=== PATIENT | male | born 1940 | race Caucasian/White ===

== ENCOUNTER 2020-12-04 10:21 | Outpatient (CLI) | payer OTHER | END 2020-12-04 10:24 | disposition home or self-care (01) | LOC: RAD 10:21 | PROVIDERS: ATTEND Physical Medicine & Rehabilitation | DX: M17.12 Unilateral primary osteoarthritis, left knee (principal) ==

== ENCOUNTER 2021-03-16 08:00 | Outpatient (CLI) | payer OTHER | END 2021-03-16 08:30 | disposition home or self-care (01) | LOC: PPH VACUNA 08:00 | DX: Z23 Encounter for immunization (principal) ==

== ENCOUNTER 2024-06-14 09:11 | Inpatient (IN) | payer OTHER ==
[~2024-06-14] VITALS: Ht 167.6 cm; Wt 83.9 kg
[2024-06-14] MEDS ORDERED: LIPITOR20 MG PO (09:43)
[2024-06-14] MEDS ORDERED: TAMS0.4C PO (09:43)
[2024-06-14] MEDS ORDERED: ZESTRIL20 MG (09:44)
[2024-06-14] MEDS ORDERED: CIPROFLOXACIN IN 5 % DEXTROSE 400 MG/200 ML PIGGYBAG IV ONE (10:15)
[2024-06-14] MEDS ORDERED: ONDANSETRON HCL 2 MG/ML VIAL IV ONE (10:15)
[2024-06-14] MEDS ORDERED: 0.9 % SODIUM CHLORIDE 1,000 ML IV ONE (10:15)
[2024-06-14] MEDS ORDERED: FAMOtidine 10 MG/ML (4ML VIAL) IV ONE (10:15)
[2024-06-14] MEDS ORDERED: METRONIDAZOLE/SODIUM CHLORIDE 500 MG/100 ML PIGGYBACK IV ONE (10:15)
[2024-06-14] MEDS ORDERED: KETOROLAC TROMETHAMINE 60 MG VIAL IM ONE (10:15)
[2024-06-14] MEDS ORDERED: METHYLPREDNISOLONE SOD SUCC 40 MG VIAL IV ONE (10:15)
[2024-06-14] MEDS ORDERED: DIPHENHYDRAMINE HCL 50 MG/ML VIAL 1ML IV ONE (10:15)
[2024-06-14] MEDS ORDERED: TAMSULOSIN HCL 0.4 MG CAP PO ONE (11:00)
[2024-06-14 11:10] LABS: HEMATOCRIT 41.4 % (39.0-48.0); HEMOGLOBIN 14.3 g/dL (13-16.00); MEAN CELL VOLUME 93.5 fL (80.0-100.00); MEAN CORPUSCULAR HEMOGLOBIN 32.3 pg (27.00-32.0); MEAN CORPUSCULAR HGB CONC 34.5 g/dl (32.0-36.0); PLATELET COUNT 240 K/uL (150-450); RED BLOOD COUNT 4.44 M/uL (4.00-6.00); RED CELL DISTRIBUTION WIDTH 14.2 % (11.5-14.5)
[2024-06-14 11:47] LABS: INR 0.97; PARTIAL THROMBOPLASTIN TIME 26.4 SECONDS (22.0-34.0); PROTHROMBIN TIME 10.6 SECONDS (9.0-11.5)
[2024-06-14 12:20] LABS: ALBUMIN 3.8 gm/dL (3.4-5.0); BILIRUBIN TOTAL 1.16 mg/dL (0.3-1.2); CALCIUM 9.1 mg/dL (8.5-10.1); CREATININE SERUM 1.8 mg/dL (0.70-1.30); GFR 36.13; POTASSIUM 4.46 mEq/L (3.5-5.1); TOTAL PROTEIN 6.8 gm/dL (6.4-8.2)
[2024-06-14] MEDS ORDERED: ASPIRIN 81 MG TABLET.EC PO ONE (12:45)
[2024-06-14] MEDS ORDERED: MORPHINE SULFATE 4 MG/ML VIAL IV ONE (14:30)
[2024-06-14] MEDS ORDERED: TICAGRELOR 90 MG TABLET PO ONE (16:15)
[2024-06-14] MEDS ORDERED: NITROGLYCERIN 250 ML IV SCH (16:15)
[2024-06-14] MEDS ORDERED: NITROGLYCERIN IN 5 % DEXTROSE 250 ML IV SCH (16:30)
[2024-06-14] MEDS ORDERED: 0.9 % SODIUM CHLORIDE 1,000 ML IV SCH (17:00)
[2024-06-14] MEDS ORDERED: ATORVASTATIN CALCIUM 40 MG TABLET PO SCH (17:03)
[2024-06-14] MEDS ORDERED: PANTOPRAZOLE SODIUM 40 MG/VIAL VIAL IV SCH (17:03)
[2024-06-14] MEDS ORDERED: ONDANSETRON HCL 4 MG in 0.9 % SODIUM CHLORIDE 50 ML IV PRN (17:15)
[2024-06-14] MEDS ORDERED: MORPHINE SULFATE 4 MG/ML CARTRIDGE IV PRN (17:30)
[2024-06-14 18:10] LABS: MAGNESIUM 2.3 mg/dL (1.8-2.4); PHOSPHOROUS 3.1 mg/dL (2.5-4.9)
[2024-06-14 18:46] LABS: CKMB 15.2 NG/ML (0.5-3.6)
[2024-06-14] MEDS ORDERED: CIPROFLOXACIN IN 5 % DEXTROSE 200 ML IV SCH (21:00)
[2024-06-14 22:53] VITALS: BP 106/63; O2SAT 100
[2024-06-14 23:30] VITALS: BP 110/59; O2SAT 100
[2024-06-15] VITALS (11 sets, daily range): BP systolic 95–113; BP diastolic 46–63; O2SAT 98–100
[2024-06-15] MEDS ORDERED: METRONIDAZOLE/SODIUM CHLORIDE 100 ML IV SCH ×2 (01:00→17:00)
[2024-06-15 02:36] LABS: CKMB 8.1 NG/ML (0.5-3.6)
[2024-06-15 07:05] LABS: URINE APPEARANCE Clear; URINE BILIRRUBIN Negative (NEGATIVE); URINE BLOOD Negative; URINE COLOR Yellow; URINE GLUCOSE Negative (NEGATIVE); URINE KETONE Negative (NEGATIVE); URINE LEUKOCYTE Negative; URINE NITRATE Negative; URINE PROTEIN Negative (NEGATIVE); URINE UROBILINOGEN 0.2 E.U./dl
[2024-06-15 07:09] LABS: URINE BACTERIA 8.8 uL (0.0-1933); URINE EPITHELIAL CELLS 1.5 uL (0.0-38.8); URINE WBC 3.5 uL (0.0-23.2)
[2024-06-15 07:30] LABS: URINE CAST 1.22 uL (0.0-1.40); URINE RBC 1.5 uL (0.0-20.8)
[2024-06-15] MEDS ORDERED: LISINOPRIL 20 MG TABLET PO SCH (09:00)
[2024-06-15] MEDS ORDERED: TAMSULOSIN HCL 0.4 MG CAP PO SCH (09:00)
[2024-06-15 09:39] LABS: CKMB 7.1 NG/ML (0.5-3.6)
[2024-06-15 13:38] LABS: HEMATOCRIT 36.2 % (39.0-48.0); HEMOGLOBIN 12.3 g/dL (13-16.00); MEAN CELL VOLUME 94.6 fL (80.0-100.00); MEAN CORPUSCULAR HEMOGLOBIN 32.1 pg (27.00-32.0); MEAN CORPUSCULAR HGB CONC 33.9 g/dl (32.0-36.0); PLATELET COUNT 203 K/uL (150-450); RED BLOOD COUNT 3.83 M/uL (4.00-6.00); RED CELL DISTRIBUTION WIDTH 14.2 % (11.5-14.5)
[2024-06-15 14:50] LABS: CREATININE SERUM 1.89 mg/dL (0.70-1.30); GFR 34.15; POTASSIUM 3.93 mEq/L (3.5-5.1)
[2024-06-15] MEDS ORDERED: CIPROFLOXACIN IN 5 % DEXTROSE 400 MG/200 ML PIGGYBAG IV SCH (21:00)
== END 2024-06-15 16:15 | disposition left against medical advice (07) | DRG 682 ==
LOC: ER 09:13 → ICU-2 21:57
PROVIDERS: General Practice; ADMIT Student in an Organized Health Care Education/Training Program; ATTEND Student in an Organized Health Care Education/Training Program
PROC: BW21ZZZ Computerized Tomography (CT Scan) of Abdomen and Pelvis (ICD-10-PCS; principal; 2024-06-14)
PROC: B020ZZZ Computerized Tomography (CT Scan) of Brain (ICD-10-PCS; 2024-06-14)
PROC: BW2FZZZ Computerized Tomography (CT Scan) of Neck (ICD-10-PCS; 2024-06-14)
PROC: BW2FYZZ Computerized Tomography (CT Scan) of Neck using Other Contrast (ICD-10-PCS; 2024-06-14)
PROC: BB24ZZZ Computerized Tomography (CT Scan) of Bilateral Lungs (ICD-10-PCS; 2024-06-14)
PROC: B246ZZZ Ultrasonography of Right and Left Heart (ICD-10-PCS; 2024-06-14)
DX: N17.9 Acute kidney failure, unspecified (principal); I21.3 ST elevation (STEMI) myocardial infarction of unspecified site; R65.10 Systemic inflammatory response syndrome (SIRS) of non-infectious origin without acute organ dysfunction; R19.7 Diarrhea, unspecified; R10.13 Epigastric pain; Z53.29 Procedure and treatment not carried out because of patient's decision for other reasons; M54.16 Radiculopathy, lumbar region; Z20.822 Contact with and (suspected) exposure to COVID-19

== ENCOUNTER 2024-08-19 10:31 | Outpatient (CLI) | payer OTHER ==
[~2024-08-19 10:31] MED LIST: LIPITOR20 MG PO; TAMS0.4C PO; ZESTRIL20 MG
== END 2024-08-19 10:33 | disposition home or self-care (01) ==
LOC: RAD 10:31
PROVIDERS: ATTEND Physical Medicine & Rehabilitation
DX: M17.12 Unilateral primary osteoarthritis, left knee (principal)